=== PATIENT | male | born 1995 | race Caucasian/White ===

== ENCOUNTER 2019-02-15 19:05 | Emergency (ER) | payer OTHER, SELFPAY ==
[2019-02-15 19:06] VITALS: BP 116/84; PULSE 83; RESP 16; TEMP 36.6; O2SAT 98; BMI 23.7
--- NOTE | 2019-02-15 20:36 | ED.DCSUM_ITS ---
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 Said yesterday he was welding. Said he was wearing his protective eyewear. But he says his eyes burning today and photophobic. He does not think there is any foreign body. He did previously have a foreign body removed from one eye but is unsure which one. He does not wear glasses or contacts. He denies any visual change but says the light bothers his eye. Physical Examination: Young male no acute distress vital signs are stable afebrile. His right eye which is the unaffected eye is 20/50 in the left eye is 20/25 the affected eye and both are 20/25. No signs of foreign body. Pupils are round reactive light. Left upper and lower lids were everted and showed no signs of foreign body or trauma. I do not see any obvious foreign body or abrasion in the left eye. Tetracaine was placed in the left eye he received significant relief to his discomfort. I then forcing stain his left eye and did a slit-lamp examination which showed no acute foreign body or corneal abrasion. Extra motions are intact. Neck nontender. Lungs clear to auscultation bilaterally. Heart regular rate and rhythm no murmur. Abdomen soft. Otherwise exam unremarkable. Test Results: None Emergency Department Course and Treatment: Tetracaine instilled in the left eye. Immediate relief. Fluorescein exam showed no acute foreign body or abrasion. No globe rupture. Treatment Plan: Pastries ophthalmic ointment twice a day. Tetracaine drops for the next 24 hours for pain. Along with Motrin. Sunglasses to prevent glare. Follow-up with ophthalmology if not improving. Disposition: Discharge Impression: Acute left eye flash burn Workers comp injury This note was generated with [employer] dictation software. It may contain incorrect words, spelling, and punctuation that were not noted in review of the chart prior to signing ED Disposition - Plan for ED Patient: Referrals: Hero Medina [Primary Care Provider] -
--- NOTE | 2019-02-15 20:39 | ED.DEP ---
ED Disposition - Plan for ED Patient: Disposition: Home or Assisted Living Instructions: ED Keratitis UV Referrals: Conor Quinonez MD [STAFF PHYSICIAN] - 1-2 Days if not improving Additional Instructions: I will ointment to the left eye twice a day. You can use the tetracaine eyedrops for pain relief but only for the next 24 hours because it retards healing. Sunglasses to prevent clear. Motrin for pain. If not improving in 2 days follow-up with the observer gravity prospecting Dr. Conor Quinonez.
[2019-02-15] MEDS: Tetracaine 0.5% Ophthalmic Bottle 1 DRP LEFT EYE (20:50)
[2019-02-15] MEDS: Fluorescein 1 MG STRIP 1 STRIP LEFT EYE (20:50)
== END 2019-02-15 20:53 | disposition home or self-care (01) ==
PROVIDERS: Emergency Provider Emergency Medicine; Family Provider Internal Medicine Rheumatology; PCP Internal Medicine Rheumatology
DX: T26.42XA Burn of left eye and adnexa, part unspecified, initial encounter (principal); X08.8XXA Exposure to other specified smoke, fire and flames, initial encounter; Y93.89 Activity, other specified; Y92.89 Other specified places as the place of occurrence of the external cause; Y99.0 Civilian activity done for income or pay; E11.9 Type 2 diabetes mellitus without complications; I10 Essential (primary) hypertension; E78.00 Pure hypercholesterolemia, unspecified; Z72.0 Tobacco use
CPT/HCPCS: 99283